=== PATIENT | female | born 1960 | race Two or more races ===

== ENCOUNTER 2016-12-24 08:32 | Emergency (ER) | payer OTHER ==
[2016-12-24 08:39] VITALS: TEMP 98.2; BMI 36.6
[2016-12-24] MEDS ORDERED: KETOROLAC TROMETHAMINE 60 MG/2 ML VIAL IM ONE (09:08)
[2016-12-24] MEDS ORDERED: KETOROLAC TROMETHAMINE 60 MG/2 ML VIAL ONE (09:11)
--- NOTE | 2016-12-24 09:30 | PDOC ---
History of Present Illness - General Chief Complaint: Pain, Acute Stated Complaint: ARM PAIN Time Seen by Provider: 12/24/16 09:08 History Source: Patient Exam Limitations: No Limitations - History of Present Illness Initial Comments: 12/24/16 09:26 CC pain to left shoulder post fall yesterday; feels houlder out of place; see at [facility] no dislocation at that time; feels it fell out of place yesterday Occurred: reports: yesterday Upper Extremity Pain Location: right: shoulder Method of Injury: reports: direct blow, fell Past History - Past Medical History Allergies/Adverse Reactions: Allergies Allergy/AdvReac Type Severity Reaction Status Date / Time No Known Allergies Allergy Verified 12/24/16 08:34 Home Medications: Ambulatory Orders NK [No Known Home Medication] 12/24/16 - Surgical History Neurologic Surgery: Yes (4 SPINAL.) - Psycho/Social/Smoking Cessation Hx Anxiety: No Suicidal Ideation: No Smoking History: Never smoked Hx Alcohol Use: No Drug/Substance Use Hx: No Substance Use Type: None Review of Systems - Review of Systems Constitutional: No: Chills, Fever, Malaise HEENTM: No: Symptoms Reported Respiratory: No: Symptoms reported Musculoskeletal: Yes: Joint Pain Integumentary: No: Symptoms Reported, Bruising *Physical Exam - Vital Signs Last Vital Signs Temp Pulse Resp BP Pulse Ox 98.2 F 62 22 95/54 100 12/24/16 08:34 12/24/16 08:34 12/24/16 08:34 12/24/16 08:34 12/24/16 08:34 - Physical Exam General Appearance: Yes: Appropriately Dressed Neck: positive: Supple. negative: Tender Respiratory/Chest: positive: Lungs Clear Extremity: positive: Other (right shoulder appears out of place) ED Treatment Course - RADIOLOGY Radiology Studies Ordered: Category Date Time Status SHOULDER W/TRANS-RIGHT [RAD] Stat Radiology 12/24/16 09:08 Taken - Medications Given in the ED: ED Medications Discontinued Medications Generic Name Dose Route Start Last Admin Trade Name Freq PRN Reason Stop Dose Admin Ketorolac Tromethamine 60 mg 12/24/16 09:08 12/24/16 09:14 Toradol Injection - IM 12/24/16 09:09 60 mg ONCE ONE Administration Medical Decision Making - Medical Decision Making 12/24/16 09:29 NV intact; referred to Dr Torrez in ED for dislocation reduction; office mover Evelyn told of case *DC/Admit/Observation/Transfer Diagnosis at time of Disposition: Dislocation of joint
[2016-12-24] MEDS ORDERED: HYDROmorphone HCL CARPU-JECT 1 MG/1 ML DISP.SYRIN IVPB ONE ×2 (09:49→11:25)
[2016-12-24] MEDS ORDERED: METOCLOPRAMIDE HCL INJECTION 10 MG/2 ML VIAL IVPUSH ONE (09:50)
[2016-12-24] MEDS ORDERED: PROPOFOL 200 MG/20 ML VIAL IVPUSH ONE ×5 (09:53→14:11)
[2016-12-24] MEDS ORDERED: PROPOFOL 20 ML ONE ×2 (10:00→13:44)
[2016-12-24] MEDS ORDERED: METOCLOPRAMIDE HCL INJECTION 10 MG/2 ML VIAL ONE (10:00)
[2016-12-24] MEDS ORDERED: HYDROmorphone HCL CARPU-JECT 1 MG/1 ML DISP.SYRIN ONE ×4 (10:00→13:44)
--- NOTE | 2016-12-24 10:37 | PDOC ---
*Physical Exam - Vital Signs Last Vital Signs Temp Pulse Resp BP Pulse Ox 98.2 F 66 16 146/81 100 12/24/16 08:34 12/24/16 10:09 12/24/16 10:09 12/24/16 10:09 12/24/16 10:09 - Physical Exam Comments: 12/24/16 08:45 The patient is a 56-year-old woman, accompanied by , with a significant past medical history of chronic back pain (s.p surgery; on Percocet) who presents to the emergency department via walk-in for further evaluation of right shoulder pain. Patient states that she fell yesterday, for which she attributes to her chronic back pain, secondary to back surgery. She states that she felt something click and pop out. No head injury, lightheadedness, dizziness, loss of consciousness. She went to [facility] this morning, at approximately 01:00 AM. By the time she arrived,m she told the staff that she felt her shoulder click back in. Images were performed and were negative for fracture or dislocation. She was discharged on Percocet (last intake was at approximately 05:00 AM). At approximately 06:00 AM, she lifted her right arm and felt a pop sound and proceeded to come to this ED. Patient was initially seen in triage by SANTIAGO Lynne. X-Rays were performed which were indicative for a right shoulder dislocation. Patient rates her pain a 10/10 in severity and denies any associated symptoms of numbness, tingling and weakness sensations to her extremity. She also feels nauseous. She states that she has never had a shoulder dislocation before. No fever, chills, weakness. No cough, shortness of breath, chest pain. No abdominal pain, vomiting, diarrhea. No urinary complaints. Allergies: No Known Drug Allergies Past Surgical History: Back surgery. Social History: No tobacco, ETOH and recreational drug use. Primary Care Physician: Dr. Shubham Casillas [phone] REVIEW OF SYSTEMS Constitutional - Pt denies Fever, Chills, weakness, HEENT: denies vision changes, sore throat Respiratory: Denies cough, sob, hemoptysis Cardiac: denies chest pain, palpitations, light headedness, leg swelling Abd/GI: denies abd pain, nausea, vomiting, blood per rectum, melena, diarrhea : denies dysuria, frequency, discharge Musculoskeletal - +Chronic back pain. +Right shoulder pain. denies joint swelling skin - denies bruising, erythema, rash neurological: denies headache, numbness, focal weakness, tingling, ataxia, weakness hematologic: denies anemia, easy bruising, easy bleeding PHYSICAL EXAMINATION: GENERAL: The patient is awake, alert, and fully oriented, Nontoxic - in no acute distress. HEAD: Normocephalic, atraumatic. EYES: extraocular movements intact, sclera anicteric, conjunctiva clear. ENT: Normal voice, moist mucous membranes. NECK: Normal range of motion, supple without lymphadenopathy, JVD, or masses. LUNGS: Breath sounds equal, clear to auscultation bilaterally. No wheezes, no crackles, no rales. HEART: Regular rate and rhythm, normal S1 and S2 without murmur, rub or gallop. ABDOMEN: Soft, nontender, normoactive bowel sounds. No guarding, no rebound. No masses. EXTREMITIES: Right shoulder tenderness to palpation. Normal pulses. Normal range of motion, no edema. No clubbing or cyanosis. No cords, erythema. NEUROLOGICAL: Fully Oriented, Alert, Normal Mood/Affect, Motor Strength 5/5. No facial assymetry, Normal speech SKIN: Warm, Dry, normal turgor, no rashes or lesions noted. <Madalyn Pascal - Last Filed: 12/24/16 12:46> - Vital Signs Last Vital Signs Temp Pulse Resp BP Pulse Ox 98.2 F 66 16 146/81 100 12/24/16 08:34 12/24/16 10:09 12/24/16 10:09 12/24/16 10:09 12/24/16 10:09 <Yvette Torrez - Last Filed: 12/24/16 16:05> ED Treatment Course - Medications Given in the ED: ED Medications Discontinued Medications Generic Name Dose Route Start Last Admin Trade Name Freq PRN Reason Stop Dose Admin Hydromorphone HCl 1 mg 12/24/16 09:49 12/24/16 10:24 Dilaudid Injection - IVPB 12/24/16 09:50 1 mg ONCE ONE Administration Ketorolac Tromethamine 60 mg 12/24/16 09:08 12/24/16 09:14 Toradol Injection - IM 12/24/16 09:09 60 mg ONCE ONE Administration Metoclopramide HCl 10 mg 12/24/16 09:50 12/24/16 10:09 Reglan Injection - IVPUSH 12/24/16 09:51 10 mg ONCE ONE Administration Propofol 40,000 mcg 12/24/16 09:53 12/24/16 10:26 Diprivan - IVPUSH 12/24/16 09:54 40,000 mcg ONCE ONE Administration <Madalyn Pascal - Last Filed: 12/24/16 12:46> - RADIOLOGY Radiology Studies Ordered: Category Date Time Status SHOULDER-RIGHT [RAD] Stat Radiology 12/24/16 10:36 Ordered - Medications Given in the ED: ED Medications Discontinued Medications Generic Name Dose Route Start Last Admin Trade Name Carsonq PRN Reason Stop Dose Admin Ketorolac Tromethamine 60 mg 12/24/16 09:08 12/24/16 09:14 Toradol Injection - IM 12/24/16 09:09 60 mg ONCE ONE Administration Metoclopramide HCl 10 mg 12/24/16 09:50 12/24/16 10:09 Reglan Injection - IVPUSH 12/24/16 09:51 10 mg ONCE ONE Administration <Yvette Torrez - Last Filed: 12/24/16 16:05> Medical Decision Making - Medical Decision Making 12/24/16 10:56 Called Orthopedics global consumer sector vice president- CY Lanza. 12/24/16 11:01 Response by Cy Lanza. Case discussed. 12/24/16 12:48 Paged CY Lanza. <Madalyn Pascal - Last Filed: 12/24/16 12:46> - Medical Decision Making 12/24/16 15:49 I, Dr. Yvette Torrez, attest that the scribes documentation that appears above has been prepared under my direction and personally reviewed by me. I confirmed that the note above accurately reflects all work, treatment, procedures, and medical decision-making performed by me. Pt care was transfered to me fron SANTIAGO Lynne after it was determined that the pt had a rt shoulder dislocation. Pt and her gave consent for conscious sedation. Pt sedated using propofol and dilaudid, shoulder felt as though it popped into place but pt still c/o pain and could not move her shoulder, case was discussed with Orthopedics, who recomeended second attempt. Pt again sedated with propofol and dilaudid and shoulder reduction attempted, this time a it felt like carlo shoulder was moving in and out of place. After the second reduction, pt was able to lift rt arm and touch left shoulder which she could not do before but pt still c/o pain, repeat xray was read as shoulder in place. / Orthopedics was consulted again came in to see pt and felt shoulder was not in place, Third shoulder reduction completed in ED by [facility] orthopedics, repeat xray still shows shoulder in place with no obvious fracture. Pt felt better and pt was deemed stable for dc home with out pt f/u in the orthopedic office in the next 48-72 hrs. Pt is still a little sleepy, will obaserve in ED for at least four hrs and then dc home with her spouse, pt requesting to home now but understands why we want to wait before dc home. pt Requesting percocet for dc home, pt has a standing prescription for percocet, but says she is not sure she has enough percocet at home. <Yvette Torrez - Last Filed: 12/24/16 16:05> *DC/Admit/Observation/Transfer - Attestations Scribe Attestion: 12/24/16 08:46 Documentation prepared by Madalyn Pascal, acting as medical information specialist for Yvette Torrez DO. <Madalyn Pascal - Last Filed: 12/24/16 12:46> - Discharge Dispostion Admit: No <Yvette Torrez - Last Filed: 12/24/16 16:05> Diagnosis at time of Disposition: Dislocation - Discharge Dispostion Disposition: HOME Condition at time of disposition: Stable - Referrals Referrals: Shubham Casillas MD [Primary Care Provider] - - Patient Instructions Printed Discharge Instructions: DI for Shoulder Dislocation - Post Discharge Activity
[2016-12-24] MEDS ORDERED: HYDROmorphone HCL CARPU-JECT 1 MG/1 ML DISP.SYRIN IVPUSH ONE ×2 (11:50→13:51)
--- NOTE | 2016-12-24 13:36 | CONSULT ---
Consult - History of Present Illness Chief Complaint: Right shoulder pain History of Present Illness: 56y/o female presented to the ER s/p fall on her right side. She immediately had pain and went to [facility]. She felt a pop while she was at [facility] and felt a lot better. she had x-rays and was told the shoulder was reduced and was placed in a sling. Earlier this morning she removed the sling and reached with the right arm and felt the shoulder pop again and had pain. She came to the ER and was diagnosed with an anterior shoulder dislocation. The ER attempted 2 closed reductions. She continues to have pain in the shoulder. She has no history of prior dislocation. The pain is worse with movement and better with rest. - History Source Limitations to Obtaining History: No Limitations - Alcohol/Substance Use Hx Alcohol Use: No - Smoking History Smoking history: Never smoked Home Medications - Allergies Allergies/Adverse Reactions: Allergies Allergy/AdvReac Type Severity Reaction Status Date / Time No Known Allergies Allergy Verified 12/24/16 08:34 - Home Medications Home Medications: Ambulatory Orders Amitriptyline HCl [Elavil -] 50 mg PO DAILY PRN 12/24/16 Ibuprofen [Motrin -] 800 mg PO TID PRN 12/24/16 Oxycodone HCl/Acetaminophen [Percocet 5-325 mg Tablet] 1 tab PO Q4H PRN Review of Systems - Review of Systems Constitutional: reports: No Symptoms Eyes: reports: No Symptoms HENT: reports: No Symptoms Neck: reports: No Symptoms Cardiovascular: reports: No Symptoms Respiratory: reports: No Symptoms Gastrointestinal: reports: No Symptoms Genitourinary: reports: No Symptoms Breasts: reports: No Symptoms Reported Musculoskeletal: reports: Joint Pain Integumentary: reports: No Symptoms Neurological: reports: No Symptoms Endocrine: reports: No Symptoms Hematology/Lymphatic: reports: No Symptoms Psychiatric: reports: No Symptoms Physical Exam Vital Signs: Vital Signs Temperature 98.2 F 12/24/16 08:34 Pulse Rate 76 12/24/16 12:41 Respiratory Rate 16 12/24/16 12:41 Blood Pressure 124/68 12/24/16 12:41 O2 Sat by Pulse Oximetry (%) 99 12/24/16 12:41 Constitutional: Yes: Well Nourished, No Distress HENT: Yes: Atraumatic, Normocephalic Musculoskeletal: Yes: Other (Right shoulder: There is obvious anterior deformity of the right shoulder. Pain with motion of the shoulder. Diffused tenderness of the shoulder. Mild edema of the shoulder. NVID.) Imaging - Results X-ray: Report Reviewed, Image Reviewed (X-ray's reviewed of the right shoulder show a anterior shoulder dislocation.) Assessment/Plan #1 Right anterior shoulder dislocation -Discussed today's findings and treatment options with the patient. I have recommended closed reduction under anaesthesia. She would like to proceed. I have explained that there is a possibility that the glenohumeral joint is unstable and an unsuccessful reduction may require surgery. She has a firm understanding and would like to proceed with closed reduction Closed Reduction, Right shoulder: The patient was placed in a supine position on the bed. A counteraction sheet was placed in the armpit. The patient was sedated by the ER staff and a traction/counter-traction maneuver was used to manipulate the arm. A reduction was felt and the shoulder was ran through ROM which was smooth. The arm was placed into a sling and post reduction images showed the shoulder reduced. The patient was reversed from anaesthesia. She tolerated the procedure well. Post reduction instructions were given. NV exam normal after reduction. -Follow up with Dr. Ovalle later this week -Keep sling on realtime reporter -Pain control
[2016-12-24] MEDS ORDERED: ONDANSETRON 4 MG/2 ML VIAL IVPUSH ONE (16:38)
[2016-12-24] MEDS ORDERED: ONDANSETRON 4 MG/2 ML VIAL ONE (16:43)
[2016-12-24] MEDS ORDERED: SODIUM CHLORIDE 1,000 ML IV SCH (16:45)
[2016-12-24 18:18] VITALS: BP 125/77; PULSE 62
== END 2016-12-24 18:18 | disposition home or self-care (01) ==
LOC: JERFT 08:32 → JER 08:32
PROC: 0RSJXZZ Reposition Right Shoulder Joint, External Approach (ICD-10-PCS; principal; 2016-12-24)
PROC: 3E0337Z Introduction of Electrolytic and Water Balance Substance into Peripheral Vein, Percutaneous Approach (ICD-10-PCS; 2016-12-24)
PROC: 3E033NZ Introduction of Analgesics, Hypnotics, Sedatives into Peripheral Vein, Percutaneous Approach (ICD-10-PCS; 2016-12-24)
PROC: 3E0233Z Introduction of Anti-inflammatory into Muscle, Percutaneous Approach (ICD-10-PCS; 2016-12-24)
DX: M24.411 Recurrent dislocation, right shoulder (principal); W01.0XXA Fall on same level from slipping, tripping and stumbling without subsequent striking against object, initial encounter; Y93.89 Activity, other specified; Y92.038 Other place in apartment as the place of occurrence of the external cause
CPT/HCPCS: 23655; 73030-TC-RT; 96361; 96372; 96374; 96375; 96376; 99285-25

== ENCOUNTER 2017-08-15 09:21 | Day surgery (SDC) | payer OTHER ==
[2017-08-15 10:00] VITALS: BMI 36.6
[2017-08-15] MEDS ORDERED: PROPOFOL 20 ML ONE ×2 (10:49)
[2017-08-15 11:17] VITALS: TEMP 97.5
--- NOTE | 2017-08-15 11:25 | PROC ---
Endoscopy Procedure Endoscopy procedure completed. Please see scanned procedure report.
[2017-08-15 11:32] VITALS: BP 139/69
[2017-08-15 11:43] VITALS: PULSE 65
--- NOTE | 2017-08-17 16:44 | PATH ---
Surgical Pathology Report Patient Name: PABLO SIBLEY [facility]. Rec. #: [id number] /Age/Gender: 1960 (Age: 56) / F Account: [id number] Location: U-ENDOSCOPY Taken: 08/15/2017 Received: 08/16/2017 Reported: 08/17/2017 Physicians: Donell Zuñiga M.D. Specimen(s) Received A: BX DUODENUM B: BX ANTRUM C: BX GE JUNCTION D: BX ESOPHAGUS Clinical History Preoperative diagnosis: Dyspepsia Final Diagnosis A. DUODENUM, SECOND PORTION, BIOPSY: DUODENAL MUCOSA WITHOUT SIGNIFICANT PATHOLOGIC FINDINGS. B. STOMACH, ANTRUM/ BODY, BIOPSY: GASTRIC ANTRAL AND BODY MUCOSA WITH MODERATE CHRONIC ACTIVE GASTRITIS. Diff-Quik special STAIN is negative for Helicobacter-like organisms. C. GASTROESOPHAGEAL (GE) JUNCTION, BIOPSY: SQUAMOCOLUMNAR MUCOSA WITH MILD CHRONIC INFLAMMATION AND CHANGES OF MILD REFLUX ESOPHAGITIS. NO INTESTINAL METAPLASIA OR DYSPLASIA IDENTIFIED. D. ESOPHAGUS BIOPSY: SQUAMOUS MUCOSA WITH MILD VASCULAR CONGESTION. Electronically Signed Aileen Han M.D. Gross Description A. Received in formalin, labeled "biopsy second portion of duodenum" are 2 paz, irregular portions of soft tissue measuring 0.2 and 0.3 cm. in greatest dimension. The specimens are submitted in toto in one cassette. B. Received in formalin, labeled "biopsy antrum/body" are 2 paz, irregular portions of soft tissue measuring 0.3 and 0.6 cm. in greatest dimension. The specimens are submitted in toto in one cassette. C. Received in formalin, labeled "biopsy GE junction" are 2 paz, irregular portions of soft tissue measuring 0.2 and 0.4 cm. in greatest dimension. The specimens are submitted in toto in one cassette. D. Received in formalin, labeled "biopsy esophagus" are 2 paz, irregular portions of soft tissue measuring 0.2 and 0.3 cm. in greatest dimension. The specimens are submitted in toto in one cassette. 08/16/201708/16/2017
== END 2017-08-15 12:35 | disposition home or self-care (01) ==
LOC: JASU-ENDO 09:21
PROVIDERS: ATTEND Internal Medicine Gastroenterology
PROC: 0DB68ZX Excision of Stomach, Via Natural or Artificial Opening Endoscopic, Diagnostic (ICD-10-PCS; 2017-08-15)
PROC: 0DB98ZX Excision of Duodenum, Via Natural or Artificial Opening Endoscopic, Diagnostic (ICD-10-PCS; principal; 2017-08-15 10:00)
DX: K29.50 Unspecified chronic gastritis without bleeding (principal); K21.0 Gastro-esophageal reflux disease with esophagitis
CPT/HCPCS: 88305-TC; 88312-TC

== ENCOUNTER 2022-03-25 04:18 | Day surgery (SDC) | payer OTHER ==
[2022-03-23 13:12] VITALS: BMI 34.4
[2022-03-25] MEDS ORDERED: BUPIVACAINE HCL/PF 0.75% 10 ML VIAL ONE (07:22)
[2022-03-25] MEDS ORDERED: LIDOCAINE HCL/PF 1% SDV 5ML VIAL ONE (07:23)
[2022-03-25 08:30] VITALS: RESP 20
[2022-03-25] MEDS ORDERED: BUPIVACAINE HCL/PF 0.75% 10 ML VIAL PNB ONE (10:20)
[2022-03-25] MEDS ORDERED: LIDOCAINE HCL 1% PRESERVATIVE FREE - 30ML VIAL IJ ONE (10:21)
[2022-03-25 10:46] VITALS: BP 141/75; PULSE 52; TEMP 96.9
== END 2022-03-25 11:45 | disposition home or self-care (01) ==
LOC: JASU-SURG 04:18
PROVIDERS: ATTEND Pain Medicine Pain Medicine
PROC: 3E0T33Z Introduction of Anti-inflammatory into Peripheral Nerves and Plexi, Percutaneous Approach (ICD-10-PCS; 2022-03-25)
PROC: 3E0T3BZ Introduction of Anesthetic Agent into Peripheral Nerves and Plexi, Percutaneous Approach (ICD-10-PCS; principal; 2022-03-25 09:30)
DX: M47.816 Spondylosis without myelopathy or radiculopathy, lumbar region (principal)
CPT/HCPCS: 76000-TC-FY

== ENCOUNTER 2022-04-22 04:11 | Day surgery (SDC) | payer OTHER ==
[2022-04-19 12:40] VITALS: BMI 34.4
[2022-04-22] MEDS ORDERED: BUPIVACAINE HCL/PF 0.75% 10 ML VIAL ONE (07:14)
[2022-04-22] MEDS ORDERED: LIDOCAINE HCL/PF 1% SDV 5ML VIAL ONE (07:14)
[2022-04-22 10:57] VITALS: RESP 18
[2022-04-22] MEDS ORDERED: LIDOCAINE HCL 1% PRESERVATIVE FREE - 30ML VIAL IJ ONE (12:32)
[2022-04-22] MEDS ORDERED: BUPIVACAINE HCL/PF 0.75% 10 ML VIAL NR ONE (12:33)
[2022-04-22] MEDS ORDERED: ACETAMINOPHEN 325 MG TABLET (FP) ONE (12:52)
[2022-04-22 15:22] VITALS: TEMP 97.8
[2022-04-22 15:28] VITALS: BP 130/70; PULSE 66
== END 2022-04-22 13:30 | disposition home or self-care (01) ==
LOC: JASU-SURG 04:11
PROVIDERS: ATTEND Pain Medicine Pain Medicine
PROC: BR16YZZ Fluoroscopy of Lumbar Facet Joint(s) using Other Contrast (ICD-10-PCS; 2022-04-22)
PROC: 3E0T3BZ Introduction of Anesthetic Agent into Peripheral Nerves and Plexi, Percutaneous Approach (ICD-10-PCS; principal; 2022-04-22 12:33)
DX: M47.896 Other spondylosis, lumbar region (principal)
CPT/HCPCS: 76000-TC-FY

== ENCOUNTER 2022-05-17 05:12 | Day surgery (SDC) | payer OTHER ==
[2022-05-12 15:14] VITALS: BMI 34.4
[~2022-05-17 05:12] MED LIST: BUPIVACAINE HCL/PF 0.75% 10 ML VIAL NR ONE; DEXAMETHASONE SOD PHOSPHATE 10 MG/1 ML VIAL IVPUSH ONE; LIDOCAINE HCL 1% PRESERVATIVE FREE - 30ML VIAL IJ ONE; LIDOCAINE HCL/PF 2% SDV 5ML VIAL INF ONE
[2022-05-17] MEDS ORDERED: LIDOCAINE HCL/PF 1% SDV 5ML VIAL ONE (07:21)
[2022-05-17] MEDS ORDERED: BUPIVACAINE HCL/PF 0.75% 10 ML VIAL ONE (07:21)
[2022-05-17 08:28] VITALS: RESP 18
[2022-05-17] MEDS ORDERED: ACETAMINOPHEN 325 MG TABLET (FP) ONE (11:16)
[2022-05-17 11:30] VITALS: BP 159/87; PULSE 58; TEMP 97.9
[2022-05-17] MEDS ORDERED: ACETAMINOPHEN 325 MG TABLET (FP) PO ONE (11:30)
== END 2022-05-17 11:35 | disposition home or self-care (01) ==
LOC: JASU-SURG 05:12
PROVIDERS: ATTEND Pain Medicine Pain Medicine
PROC: 3E0T3TZ Introduction of Destructive Agent into Peripheral Nerves and Plexi, Percutaneous Approach (ICD-10-PCS; principal; 2022-05-17 09:00)
PROC: BR16YZZ Fluoroscopy of Lumbar Facet Joint(s) using Other Contrast (ICD-10-PCS; 2022-05-17 09:00)
DX: M47.816 Spondylosis without myelopathy or radiculopathy, lumbar region (principal)
CPT/HCPCS: 76000-TC-FY; J1100

== ENCOUNTER 2023-05-31 23:00 | Emergency (ER) | payer OTHER ==
[2023-05-31 23:32] VITALS: BP 124/62; PULSE 62; RESP 16; TEMP 97.9; BMI 34.3
[2023-05-31 23:42] LABS: EPITHELIAL CELLS FEW /hpf
[2023-05-31] MEDS ORDERED: ACETAMINOPHEN 500 MG TABLET (FP) PO ONE (23:47)
[2023-05-31] MEDS ORDERED: ACETAMINOPHEN 500 MG TABLET (FP) ONE (23:48)
== END 2023-06-01 00:16 | disposition home or self-care (01) ==
LOC: FER 23:00
DX: H92.02 Otalgia, left ear (principal); M54.9 Dorsalgia, unspecified; G89.29 Other chronic pain
CPT/HCPCS: 81003; 81015; 99283-25